=== PATIENT | female | born 1940 | race Caucasian/White ===

== ENCOUNTER 2017-03-21 06:04 | Observation (INO) | payer MEDICARE, BC ==
[~2017-03-21] VITALS: Ht 172.7 cm; Wt 76.0 kg
--- NOTE | ~2017-03-21 | CATH ---
Cardiac Diagnostic + PCI Report Demographics Patient Name MAURA Segura Gender Female Date of 1940 Age 76 year(s) Patient Number [id number] Date of Study 03/21/2017 Visit Number [id number] Room Number 422 Corporate ID Ht 172.72 cm Wt 76.2 kg Accession Number [id number] BSA 1.9 m kg/m Referring Wilder Styles Primary Physician Physician Ben Harmon Performing Rick SINGH Secondary Physician Physician Faustino Diagnostic Rick SINGH Assisting Physician Physician Faustino Interventional Rick SINGH Physician Caramel Candy Maker Helper Physician Faustino Findings and Conclusions Diagnostic Findings and Conclusion 1. Two vessel CAD. 2. Mid RCA with instent restenosis 90%. Diagnostic Recommendations 1. Immediate PCI to RCA. Interventional Findings and Conclusion 1. Successful PCI to RCA with 3.5 x 38 Synergy EDILBERTO post dilated to 4 mm in proximal and mid segments. Interventional Recommendations 1. Risk factor modifications. 2. Aggressive dual antiplatelet therapy. Procedure Description The patient was brought to the diagnostic cardiac catheterization laboratory in the fasting, non-sedated state. Informed consent was obtained in the written and verbal form after the risks and benefits were explained. The patient had no further questions and agreed to proceed. The planned puncture-incision site(s) were shaved and prepped with ChloraPrep and draped in the usual sterile manner. Conscious sedation, supplemental oxygen, and pain control medications were delivered by a registered nurse under physician guidance. Surface ECG rhythm, blood pressure measurement, and pulse oximetry were monitored throughout the procedure. Arterial access. The right radial access site was infiltrated with lidocaine. The vessel was entered with the Seldinger technique. A 6F sheath was advanced into the vessel and used for catheter placement. Radial cocktail was administered per protocol. Selective left coronary angiography. A catheter was advanced into the left coronary vessel ostium under Fluoroscopic guidance. Contrast was injected by hand. Images were obtained in multiple projections. Selective right coronary angiography. A catheter was advanced into the right coronary vessel ostium under fluoroscopic guidance. Contrast was injected by hand. Images were obtained in multiple projections. Left heart catheterization. A catheter was advanced across the aortic valve to the left ventricle under fluoroscopic guidance. Resting hemodynamics were obtained. Arterial artery hemostasis was achieved. The patient was transferred to a regular nursing floor via cart accompanied by a nurse. The patient left the laboratory in stable condition. Diagnostic Cath Status: Elective Interventional Cath Status: Elective Procedure Procedure Type Diagnostic procedure:Angiography:, Coronary Angios /[facility] PCI procedure:Drug Eluting Coronary Stent:, RCA Indications: Chest pain, Abnormal nuclear perfusion test, CAD, Tobacco use-current, Hyperlipidemia, Hypertension, Diabetes and Prior PCI with stent placement. The procedure was explained in detail to the patient. Risks, complications and alternative treatments were reviewed. Written consent was obtained. Medications Reviewed with Patient prior to Procedure. Complications: No Complication. Angiographic Findings Dominance: Right Cardiac Arteries and Lesion Findings LMCA: Normal (0% Stenosis). LAD: Abnormal. Lesion on Mid LAD: 20% stenosis . Lesion on 1st Dia% stenosis . LCx: Normal (0% Stenosis). RCA: Abnormal.There is a previous stent on Prox RCA. Lesion on Mid RCA: 90% stenosis .Culprit lesion. Devices used - [employer] GUIDEWIRE 180CM. Number of passes: 1. - CATH BAL RX EMERGE 3.0X15. 1 inflation(s) to a max pressure of: 12 ivonne. - CATH STENT SYNERGY 3.5 X 38. 1 inflation(s) to a max pressure of: 16 ivonne. - CATH BAL RX NC EMERGE 4.0X20. 3 inflation(s) to a max pressure of: 18 ivonne. Coronary Tree Procedure Data Procedure Date Date: 03/21/2017Start: 07:52 AM Entry Locations - Percutaneous access was performed through the Right Radial artery (Primary location). A 6 Fr sheath was inserted. Hemostasis was successfully obtained using a TR band. Procedure Medications Order and Administration + + +---------+-------+ !Time !Medication !Dosage !Route ! + + +---------+-------+ !03/21/2017 !Oxygen !2 l/min !NC ! !08:04 AM ! ! ! ! + + +---------+-------+ !03/21/2017 !Versed !2 mg !I.V. ! !08:09 AM ! ! ! ! + + +---------+-------+ !03/21/2017 !Fentanyl !50 mcg !I.V. ! !08:09 AM ! ! ! ! + + +---------+-------+ !03/21/2017 !Sodium Chloride !10 ml !I.V. ! !08:09 AM ! ! ! ! + + +---------+-------+ !03/21/2017 !SF Radial Cocktail: 200mcg Nitro, 2.5 mg! !I.A. ! !08:13 AM !Verapamil, 5000u Heparin ! ! ! + + +---------+-------+ !03/21/2017 !Heparin (ACC_3) !2000 !I.V. ! !08:49 AM ! !units ! ! + + +---------+-------+ !03/21/2017 !Plavix (ACC_8) !600 mg !P.O. ! !08:27 AM ! ! ! ! + + +---------+-------+ !03/21/2017 !Baby Aspirin (ACC_4) !81 mg !P.O. ! !08:28 AM ! ! ! ! + + +---------+-------+ Devices Used - A6F TIG CATHETERwas used for:Coronary Angios. - ACATH 6FR PIG 145 110CM CATHETERwas used for:LV Pressures. - AGUIDE CATHETER 6FR AL .075 100CMwas used for:RCA Intervention. Contrast Material - Isovue 48730 ml - Isovue 12413 ml Fluoroscopy Time: Diagnostic: 5:48 minutes. Total: 5:48 minutes. Fluoroscopy Dose: Diagnostic: 525 mGy. Total: 525 mGy. Estimated Blood Loss: 10 ml. Medical History Allergies - Other:(Effexor, Lipitor, Lisinopril). Risk Factors The patient risk factors include:prior PCI on 04/01/2008;hypertension, orally-treated diabetes mellitus, chronic lung disease, last creatinine: 1 mg/dl, creatinine clearance: 59.38 ml/min, dyslipidemia and Current/Recent(w/in 1 year) tobacco use. Admission Data Admission Date: 03/21/2017 Admission Time: 08:40 AM Insurance Payors: Medicare. Clinical Evaluation Leading to Procedure - The patient's CAD presentation was assessed as: Unstable angina. - The patient's anginal syndrome during the past two weeks was assessed as: Class III according to the [place] Cardiovascular Society Classification System (CCS). Anti-anginal medications were prescribed during the past two weeks. The medications are: Beta Blockers and Long Acting Nitrates. Hemodynamics Condition: Rest O2 Consumption: Estimated: 168.95Heart Rate: 64 bpm Pressures (mmHg) +-----+ + !Site !Pressure ! +-----+ + !AO !92/44 (63) ! +-----+ + !LV !112/0 ,10 ! +-----+ + !AO !113/48 (76) ! +-----+ + !LV !114/0 ,10 ! +-----+ + !AO !142/62 (96) ! +-----+ + Valve Gradients and Areas + +---------+---------+---------+ +---------+ + !Valve !Peak !Mean !Area !Index !Flow !Source ! + +---------+---------+---------+ +---------+ + !Aortic !1 !0 ! ! ! ! ! + +---------+---------+---------+ +---------+ + !Aortic !1 !0 ! ! ! ! ! + +---------+---------+---------+ +---------+ + Shunts Oxygen Values O2 Capacity 144.16 O2 Consumption 168.95 Discharge Data Discharge Date: 03/22/2017 Hospital Status: Inpatient Signatures
[2017-03-23] MEDS ORDERED: CARVEDILOL25 MG PO (14:45)
[2017-03-23] MEDS ORDERED: ATORVASTATIN CA40 MG PO (14:45)
[2017-03-23] MEDS ORDERED: ZYLOPRIM-DPS300 MG PO (14:45)
[2017-03-23] MEDS ORDERED: ASA CHILDREN'S81 MG PO (14:45)
[2017-03-23] MEDS ORDERED: LOPID DPS600 MG PO (14:46)
[2017-03-23] MEDS ORDERED: CO Q-1010 MG PO (14:46)
[2017-03-23] MEDS ORDERED: IMDUR DPS60 MG PO (14:47)
[2017-03-23] MEDS ORDERED: AMARYL2 MG PO (14:47)
[2017-03-23] MEDS ORDERED: LOSARTAN-HCTZ1 EAC1 PO (14:48)
[2017-03-23] MEDS ORDERED: GLUCOPHAGE DPS850 MG PO (14:49)
[2017-03-23] MEDS ORDERED: MAGNESIUM OXID250 MG PO (14:49)
[2017-03-23] MEDS ORDERED: REMERON DPS15 MG PO (14:50)
[2017-03-23] MEDS ORDERED: NITROSTAT0.4 MG SL (14:50)
[2017-03-23] MEDS ORDERED: OXYBUTYNIN CHLOR5 MG PO (14:51)
[2017-03-23] MEDS ORDERED: PLAVIX75 MG PO (14:52)
[2017-03-23] MEDS ORDERED: POTASSIUM CHLO10 ME2 PO (14:53)
[2017-03-23] MEDS ORDERED: VITAMIN C1000 MG PO (14:53)
[2017-03-23] MEDS ORDERED: PROTONIX40 MG PO (14:53)
[2017-03-23] MEDS ORDERED: VITAMIN D-32000 UNI1 PO (14:54)
[2017-03-23] MEDS ORDERED: XANAX DPS0.25 MG PO (14:55)
== END 2017-03-22 10:55 | disposition home or self-care (01) ==
LOC: SSS 06:04 → 4PCU 08:40 → CARD 16:26 → EDSTATUS 16:52 → SSS 16:55 → 4PCU 03-22 10:55
PROVIDERS: ADMIT Internal Medicine Cardiovascular Disease
DX: I25.110 Atherosclerotic heart disease of native coronary artery with unstable angina pectoris (principal); T82.855A Stenosis of coronary artery stent, initial encounter; I10 Essential (primary) hypertension; E78.5 Hyperlipidemia, unspecified; E11.9 Type 2 diabetes mellitus without complications; Z88.8 Allergy status to other drugs, medicaments and biological substances; F32.9 Major depressive disorder, single episode, unspecified; M10.9 Gout, unspecified; K21.9 Gastro-esophageal reflux disease without esophagitis; E55.9 Vitamin D deficiency, unspecified; F17.210 Nicotine dependence, cigarettes, uncomplicated; J44.9 Chronic obstructive pulmonary disease, unspecified; Z90.710 Acquired absence of both cervix and uterus; Z90.49 Acquired absence of other specified parts of digestive tract; Z98.890 Other specified postprocedural states